=== PATIENT | female | born 1970 | race Native Hawaiian/Other Pacific Islander ===

== ENCOUNTER 2019-10-20 11:22 | Emergency (ER) | payer OTHER ==
[~2019-10-20] VITALS: Ht 124.5 cm; Wt 72.6 kg
[2019-10-20] MEDS ORDERED: RANI150T78 PO (11:58)
[2019-10-20 14:44] LABS: PLATELET COUNT 354 K/uL (152-353)
[2019-10-20 14:45] LABS: POTASSIUM 3.3 mmol/L (3.6-5.2)
[2019-10-20 15:00] VITALS: BP 153/87; TEMP 96.8
== END 2019-10-20 15:00 | disposition home or self-care (01) ==
LOC: ED 11:22
PROVIDERS: Family Medicine
DX: L02.413 Cutaneous abscess of right upper limb (principal); S40.261A Insect bite (nonvenomous) of right shoulder, initial encounter
CPT/HCPCS: 80053; 85027; 87070; 87205; 90471; 90715; 99283